=== PATIENT | female | born 1960 | race Caucasian/White ===

== ENCOUNTER 2016-12-21 21:44 | Observation (INO) | payer BC ==
[~2016-12-21] VITALS: Ht 172.7 cm; Wt 97.7 kg
[~2016-12-21 21:44] MED LIST: CELEXA40 MG PO; NORVASC 5MG5 MG/TAB PO; PROTONIX 40MG T40 MG PO; ZESTRIL 10MG10 MG PO
[2016-12-21] MEDS ORDERED: LYRICA 100MG C100 M1 PO (21:56)
[2016-12-21 22:21] LABS: BASO % 0.2 % (0.0-2.0); EOS # 0.6 (0.0-0.7); EOS % 11.5 % (0-4.0); GRAN # 2.1 (1.4-6.5); GRAN % 38.6 % (42.2-75.2); HEMOGLOBIN 14.9 g/dl (12.5-16.0); LYMPH # 2.3 (1.2-3.4); MEAN CELL VOLUME 92 fl (80.0-100.0); MEAN CORPUSCULAR HEMOGLOBIN 30 pg (27.0-31.0); MEAN CORPUSCULAR HGB CONC 33 g/dl (33.0-37.0); MEAN PLATELET VOLUME 10.7 fl (7.4-10.4); MONO # 0.4 (0.1-0.6); MONO % 7.3 % (1.7-9.3); PLATELET COUNT 228 K/mm3 (130-400); RED BLOOD COUNT 4.91 M/mm3 (4.10-5.30); REDCELL DISTRIBUTION WIDTH-CV 12.4 % (11.5-14.5); WHITE BLOOD COUNT 5.5 K/mm3 (4.8-10.8)
[2016-12-21 22:35] LABS: ALANINE AMINOTRANSFERASE 33 U/L (9-52); ALBUMIN 3.7 gm/dL (3.5-5.0); ALKALINE PHOSPHATASE 82 U/L (50-136); ANION GAP 12 mmol/L (7-16); BILIRUBIN,TOTAL 0.4 mg/dL (0.0-1.0); BLOOD UREA NITROGEN 12 mg/dL (7-17); CALCIUM 8.8 mg/dL (8.4-10.2); CARBON DIOXIDE 26 mmol/L (22-30); CHLORIDE 103 mmol/L (98-107); CREATINE KINASE 44 U/L (30-135); CREATININE, serum 0.65 mg/dL (0.52-1.25); GLUCOSE 109 mg/dL (74-106); LIPASE 297 U/L (23-300); POTASSIUM 3.5 mmol/L (3.4-5.0); SODIUM 140 mmol/L (137-145); TOTAL PROTEIN 7.3 gm/dL (6.4-8.2)
[2016-12-21 22:41] LABS: B-TYPE NATRIURETIC PEPTIDE 30 pg/mL (0-125); TROPONIN-I < 0.012 ng/mL (0.000-0.034)
[2016-12-21] MEDS ORDERED: PREDNISONE20 MG PO (23:02)
[2016-12-22 02:48] LABS: INR 0.9 (0.8-3.0); PROTHROMBIN TIME 9.6 SECONDS (9.7-12.8)
[2016-12-22 02:50] LABS: PARTIAL THROMBOPLASTIN TIME 30.2 SECONDS (26.0-37.0)
[2016-12-22 03:22] VITALS: BP 120/71; PULSE 88; TEMP 97.7
[2016-12-22] MEDS ORDERED: LYRICA 100MG C100 M1 PO (03:41)
[2016-12-22 07:51] VITALS: BP 118/61; PULSE 118; TEMP 97.5
[2016-12-22] MEDS ORDERED: NITROSTAT0.4 MG/TAB SL (10:00)
[2016-12-22] MEDS ORDERED: ASPIRIN E.C. 8181 MG PO (10:02)
[2016-12-26] MEDS ORDERED: LYRICA 150MG C150 MG PO (08:19)
[2016-12-26] MEDS ORDERED: PREDNISONE20 MG PO (08:23)
== END 2016-12-22 11:26 | disposition home or self-care (01) ==
LOC: COL.ER 21:44 → MEDICAL 23:49
PROVIDERS: Emergency Medicine; Nurse Practitioner Family
DX: R07.89 Other chest pain (principal); R06.02 Shortness of breath; I10 Essential (primary) hypertension; J20.9 Acute bronchitis, unspecified; Z87.891 Personal history of nicotine dependence
CPT/HCPCS: G0378; J2930; J7030; J7512

== ENCOUNTER → 2016-12-26 | Outpatient (CLI) | payer BC ==
[~2016-12-26] VITALS: Ht 172.7 cm; Wt 95.5 kg
[~2016-12-26] MED LIST changes: +ASPIRIN E.C. 8181 MG PO; +LYRICA 100MG C100 M1 PO; +LYRICA 150MG C150 MG PO; +NITROSTAT0.4 MG/TAB SL; +PREDNISONE20 MG PO
[2016-12-26 08:27] VITALS: BP 128/97; PULSE 83
== END ==
LOC: COL.CARD 08:04
DX: R07.89 Other chest pain (principal)
CPT/HCPCS: A9502

== ENCOUNTER 2018-10-28 08:16 | Emergency (ER) | payer BC ==
[~2018-10-28] VITALS: Ht 172.7 cm; Wt 97.7 kg
[2018-10-28 08:26] VITALS: TEMP 98.3
[2018-10-28] MEDS ORDERED: NORCO 325 MG-51 TAB PO (09:55)
[2018-10-28] MEDS ORDERED: FLEXERIL 1010 MG/TAB PO (09:55)
[2018-10-28 10:05] VITALS: BP 128/76; PULSE 90
== END 2018-10-28 10:07 | disposition home or self-care (01) ==
LOC: COL.ER 08:16
DX: S39.012A Strain of muscle, fascia and tendon of lower back, initial encounter (principal); I10 Essential (primary) hypertension; R40.2412 Glasgow coma scale score 13-15, at arrival to emergency department; W00.0XXA Fall on same level due to ice and snow, initial encounter
CPT/HCPCS: J1170; J2060

== ENCOUNTER → 2018-11-13 | Outpatient (CLI) | payer BC ==
[~2018-11-13] MED LIST changes: +FLEXERIL 1010 MG/TAB PO; +NORCO 325 MG-51 TAB PO
== END ==
LOC: COL.RAD 13:46
DX: M53.3 Sacrococcygeal disorders, not elsewhere classified (principal)

== ENCOUNTER → 2018-12-12 | Outpatient (CLI) | payer BC | LOC: MC.RAD 06:58 | DX: Z12.31 Encounter for screening mammogram for malignant neoplasm of breast (principal) ==

== ENCOUNTER → 2019-09-11 | Outpatient (CLI) | payer BC | LOC: COL.RAD 08:07 | DX: K21.9 Gastro-esophageal reflux disease without esophagitis (principal); K44.9 Diaphragmatic hernia without obstruction or gangrene; K59.00 Constipation, unspecified | CPT/HCPCS: A9541 ==

== ENCOUNTER → 2021-02-15 | Outpatient (CLI) | payer BC | LOC: MC.RAD 06:57 | DX: R92.0 Mammographic microcalcification found on diagnostic imaging of breast (principal); Z98.82 Breast implant status | CPT/HCPCS: 30635 ==